=== PATIENT | female | born 1985 | race Caucasian/White ===

== ENCOUNTER 2016-08-26 16:32 | Emergency (ER) | payer SELFPAY ==
[~2016-08-26] VITALS: Ht 165.1 cm; Wt 95.1 kg
[2016-08-26] MEDS ORDERED: SODIUM CHLORIDE 0.9% 1,000 ML IV ONE (16:43)
[2016-08-26] MEDS ORDERED: METOCLOPRAMIDE 5 MG/ML, 2ML IVPush ONE (17:00)
[2016-08-26] MEDS ORDERED: SODIUM CHLORIDE 0.9% 1,000ML IVBOLUS ONE (17:00)
[2016-08-26 17:18] LABS: ASPARTATE AMINO TRANSFERASE 16 U/L (15-37); BLOOD UREA NITROGEN 7 mg/dL (7-18)
[2016-08-26] MEDS ORDERED: DOXY1TAB3 PO (17:26)
[2016-08-26] MEDS ORDERED: METOCLOPRAMIDE 5 MG/ML, 2ML ONE (17:46)
[2016-08-26] MEDS ORDERED: CEFTRIAXONE PMX 1GM/50ML 50 ML ONE (19:05)
[2016-08-26] MEDS ORDERED: CEFTRIAXONE PMX 1GM/50ML 50 ML IV ONE (19:30)
[2016-08-26] MEDS ORDERED: CEFTRIAXONE 1,000 MG in SODIUM CHLORIDE 0.9% 50 ML IV ONE (19:30)
[2016-08-26 20:06] VITALS: BP 116/50
== END 2016-08-26 20:18 | disposition home or self-care (01) ==
LOC: ED 20:00
DX: O23.11 Infections of bladder in pregnancy, first trimester (principal); Z3A.12 12 weeks gestation of pregnancy; O26.891 Other specified pregnancy related conditions, first trimester; R11.2 Nausea with vomiting, unspecified; J45.909 Unspecified asthma, uncomplicated
CPT/HCPCS: 36415; 80053; 81001; 83690; 85025; 87077; 87086; 87186; 96361; 96374; 96375; 99284; J0696; J2765; J7030

== ENCOUNTER 2016-09-14 07:39 | Emergency (ER) | payer OTHER ==
[~2016-09-14] VITALS: Ht 165.1 cm; Wt 95.5 kg
[~2016-09-14 07:39] MED LIST: DOXY1TAB3 PO
[2016-09-14 08:58] LABS: ASPARTATE AMINO TRANSFERASE 8 U/L (15-37); BLOOD UREA NITROGEN 7 mg/dL (7-18)
[2016-09-14 09:47] VITALS: BP 104/59
== END 2016-09-14 09:58 | disposition home or self-care (01) ==
LOC: ED 08:34
DX: O23.42 Unspecified infection of urinary tract in pregnancy, second trimester (principal); Z3A.16 16 weeks gestation of pregnancy
CPT/HCPCS: 36415; 80053; 81001; 83690; 85025; 87086; 99284

== ENCOUNTER 2016-11-07 07:14 | Inpatient (IN) | payer OTHER ==
[~2016-11-07] VITALS: Ht 165.1 cm; Wt 98.3 kg
[2016-11-07] MEDS ORDERED: CEFTRIAXONE PMX 1GM/50ML 50 ML IV SCH (08:30)
[2016-11-07] MEDS: LACTATED RINGERS 1,000 ML IV SCH ×2 (08:30→15:54)
[2016-11-07] MEDS ORDERED: LACTATED RINGERS 1,000 ML IV SCH (08:30)
[2016-11-07 08:36] LABS: HEMATOCRIT 35.1 % (34.6-47.8); HEMOGLOBIN 11.7 g/dL (11.7-16.4)
[2016-11-07] MEDS ORDERED: ONDANSETRON 2MG/ML, 2ML ONE ×3 (08:37→18:47)
[2016-11-07] MEDS ORDERED: MORPHINE SULFATE 4 MG/ML, 1ML ONE ×4 (08:39→14:49)
[2016-11-07] MEDS: ONDANSETRON 2MG/ML, 2ML IVPush PRN ×3 (08:45→18:50)
[2016-11-07] MEDS: MORPHINE SULFATE 4 MG/ML, 1ML IVPush PRN ×4 (08:46→14:53)
[2016-11-07] MEDS ORDERED: OXYcodone/APAP 5/325MG TABLET PO PRN (09:00)
[2016-11-07] MEDS ORDERED: OXYcodone/APAP 5/325MG TABLET ONE (11:53)
[2016-11-07] MEDS ORDERED: MEPERIDINE/PF 100 MG/ML ONE ×2 (16:08→21:04)
[2016-11-07] MEDS: MEPERIDINE/PF 100 MG/ML IM PRN ×2 (16:16→21:07)
[2016-11-07 20:19] LABS: DAU SCREEN DISCLAIMER
[2016-11-07] MEDS: CEFTRIAXONE PMX 1GM/50ML 50 ML IV SCH (21:00)
[2016-11-08] MEDS ORDERED: ONDANSETRON 2MG/ML, 2ML ONE ×2 (02:16→21:59)
[2016-11-08] MEDS ORDERED: MEPERIDINE/PF 100 MG/ML ONE ×2 (02:16→07:45)
[2016-11-08] MEDS: MEPERIDINE/PF 100 MG/ML IM PRN ×2 (02:22→07:53)
[2016-11-08] MEDS: ONDANSETRON 2MG/ML, 2ML IVPush PRN ×2 (02:22→22:02)
[2016-11-08] MEDS: LACTATED RINGERS 1,000 ML IV SCH ×3 (08:36→17:35)
[2016-11-08] MEDS: CEFTRIAXONE PMX 1GM/50ML 50 ML IV SCH ×2 (08:57→21:10)
[2016-11-08] MEDS: PROMETHAZINE 25 MG SUPP PR PRN (08:57)
[2016-11-08 10:13] VITALS: BP 120/65
[2016-11-08] MEDS ORDERED: MORPHINE SULFATE 4 MG/ML, 1ML ONE (11:29)
[2016-11-08] MEDS: MORPHINE SULFATE 4 MG/ML, 1ML IVPush PRN (11:30)
[2016-11-08] MEDS: D5%-LACTATED RINGERS 1,000 ML IV SCH (14:00)
[2016-11-08 23:02] VITALS: BP 131/63
[2016-11-09] MEDS: LACTATED RINGERS 1,000 ML IV SCH ×4 (02:21→21:51)
[2016-11-09] MEDS: D5%-LACTATED RINGERS 1,000 ML IV SCH ×3 (06:00→14:00)
[2016-11-09] MEDS: PROMETHAZINE 25 MG SUPP PR PRN (08:46)
[2016-11-09] MEDS: CEFTRIAXONE PMX 1GM/50ML 50 ML IV SCH ×2 (08:46→20:48)
[2016-11-09 16:40] VITALS: BP 133/72
[2016-11-09 22:26] VITALS: BP 120/66
[2016-11-10] MEDS: LACTATED RINGERS 1,000 ML IV SCH ×3 (02:24→16:23)
[2016-11-10] MEDS ORDERED: METOCLOPRAMIDE 5 MG/ML, 2ML IVPush PRN (08:00)
[2016-11-10] MEDS: MAGNESIUM HYDROXIDE 8%, 30ML UDC PO SCH (08:10)
[2016-11-10] MEDS: FAMOTIDINE 20 MG/2 ML IV SCH ×2 (08:12→20:46)
[2016-11-10] MEDS: MEPERIDINE PCA 300 MG/30 ML IV PRN ×2 (08:35→18:55)
[2016-11-10] MEDS: CEFTRIAXONE PMX 1GM/50ML 50 ML IV SCH ×2 (08:41→20:49)
[2016-11-10] MEDS ORDERED: CALCIUM CARBONATE 500 MG TAB.CHEW PO PRN (12:30)
[2016-11-10] MEDS ORDERED: METOCLOPRAMIDE 5 MG/ML, 2ML ONE ×2 (14:55→20:38)
[2016-11-10] MEDS: METOCLOPRAMIDE 5 MG/ML, 2ML IVPush SCH ×2 (14:56→20:49)
[2016-11-11] MEDS: LACTATED RINGERS 1,000 ML IV SCH ×3 (01:01→17:17)
[2016-11-11] MEDS ORDERED: METOCLOPRAMIDE 5 MG/ML, 2ML ONE ×4 (03:01→20:47)
[2016-11-11] MEDS: METOCLOPRAMIDE 5 MG/ML, 2ML IVPush SCH ×3 (03:04→20:52)
[2016-11-11 09:00] VITALS: BP 162/67
[2016-11-11] MEDS: CEFTRIAXONE PMX 1GM/50ML 50 ML IV SCH ×2 (09:00→09:09)
[2016-11-11] MEDS: MAGNESIUM HYDROXIDE 8%, 30ML UDC PO SCH (09:00)
[2016-11-11] MEDS: FAMOTIDINE 20 MG/2 ML IV SCH (09:10)
[2016-11-11] MEDS ORDERED: MAGNESIUM HYDROXIDE 8%, 30ML UDC ONE (09:15)
[2016-11-11] MEDS ORDERED: MEPERIDINE PCA 300 MG/30 ML IV PRN (12:53)
[2016-11-11] MEDS: MEPERIDINE PCA 300 MG/30 ML IV PRN ×2 (12:59→22:16)
[2016-11-11] MEDS ORDERED: ALBUTEROL SULFATE 2.5 MG/3 ML NPPB PRN (13:30)
[2016-11-11] MEDS ORDERED: PRENATAL VIT/IRON/FA 1 EACH TABLET ONE (15:39)
[2016-11-11] MEDS: PRENATAL VIT/IRON/FA 1 EACH TABLET PO SCH (15:41)
[2016-11-11 20:41] VITALS: BP 148/58
[2016-11-11] MEDS ORDERED: DOCUSATE 100 MG CAPSULE PO SCH (21:00)
[2016-11-11] MEDS ORDERED: DOCUSATE 100 MG CAPSULE ONE (21:01)
[2016-11-11 21:20] LABS: HEMATOCRIT 28.5 % (34.6-47.8); HEMOGLOBIN 9.5 g/dL (11.7-16.4); WHITE BLOOD COUNT 9.3 x10^3/uL (3.4-10)
[2016-11-11 21:32] LABS: ASPARTATE AMINO TRANSFERASE 20 U/L (15-37); BLOOD UREA NITROGEN 10 mg/dL (7-18)
[2016-11-12] MEDS: LACTATED RINGERS 1,000 ML IV SCH ×2 (00:24→08:40)
[2016-11-12] MEDS ORDERED: METOCLOPRAMIDE 5 MG/ML, 2ML ONE ×3 (04:42→14:37)
[2016-11-12] MEDS: METOCLOPRAMIDE 5 MG/ML, 2ML IVPush SCH ×3 (04:45→14:47)
[2016-11-12] MEDS: CEFTRIAXONE PMX 1GM/50ML 50 ML IV SCH (06:52)
[2016-11-12] MEDS ORDERED: DOCUSATE 100 MG CAPSULE ONE (08:46)
[2016-11-12] MEDS ORDERED: PRENATAL VIT/IRON/FA 1 EACH TABLET ONE (08:46)
[2016-11-12] MEDS ORDERED: MAGNESIUM HYDROXIDE 8%, 30ML UDC ONE (08:46)
[2016-11-12] MEDS: FAMOTIDINE 20 MG/2 ML IV SCH (08:48)
[2016-11-12] MEDS: PRENATAL VIT/IRON/FA 1 EACH TABLET PO SCH (08:49)
[2016-11-12 09:00] VITALS: BP 120/67
== END 2016-11-12 17:10 | disposition home or self-care (01) | DRG 781 ==
LOC: LDOP 07:14 → OBSVTOIN 08:08 → LDIP 08:08
PROVIDERS: ADMIT Obstetrics & Gynecology Maternal & Fetal Medicine; ATTEND Obstetrics & Gynecology Maternal & Fetal Medicine
PROC: 0T9B70Z Drainage of Bladder with Drainage Device, Via Natural or Artificial Opening (ICD-10-PCS; principal; 2016-11-11)
DX: O23.02 Infections of kidney in pregnancy, second trimester (principal); O26.832 Pregnancy related renal disease, second trimester; F17.210 Nicotine dependence, cigarettes, uncomplicated; O99.332 Smoking (tobacco) complicating pregnancy, second trimester; N20.0 Calculus of kidney; Z3A.23 23 weeks gestation of pregnancy; Z3A.22 22 weeks gestation of pregnancy
CPT/HCPCS: 36415; 76770; 80053; 80307; 81001; 82360; 85025; 87077; 87086; 87186; 88300; J0696; J2175; J2270; J2405; J2765; J7120; J7121; S0028

== ENCOUNTER 2017-02-12 16:00 | Outpatient (CLI) | payer OTHER ==
[2017-02-12 16:16] VITALS: BP 123/72
== END 2017-02-12 17:10 | disposition home or self-care (01) ==
LOC: LDOP 16:00
PROVIDERS: ATTEND Obstetrics & Gynecology Maternal & Fetal Medicine
DX: O26.893 Other specified pregnancy related conditions, third trimester (principal); O11.3 Pre-existing hypertension with pre-eclampsia, third trimester; O99.513 Diseases of the respiratory system complicating pregnancy, third trimester; J45.909 Unspecified asthma, uncomplicated; O99.333 Smoking (tobacco) complicating pregnancy, third trimester; F17.200 Nicotine dependence, unspecified, uncomplicated; R10.9 Unspecified abdominal pain; Z3A.36 36 weeks gestation of pregnancy
CPT/HCPCS: 59025; 87081; 99211; G0463

== ENCOUNTER 2017-02-18 11:29 | Outpatient (CLI) | payer OTHER ==
[~2017-02-18] VITALS: Ht 165.1 cm; Wt 90.0 kg
[2017-02-18] MEDS ORDERED: PROM25TA10 PO (11:41)
[2017-02-18] MEDS ORDERED: PREN1TAB60 PO (11:41)
[2017-02-18 11:44] VITALS: BP 129/70
[2017-02-18 12:26] LABS: DAU SCREEN DISCLAIMER
== END 2017-02-18 15:23 | disposition home or self-care (01) ==
LOC: LDOP 11:29
PROVIDERS: ATTEND Student in an Organized Health Care Education/Training Program
DX: O26.893 Other specified pregnancy related conditions, third trimester (principal); O62.9 Abnormality of forces of labor, unspecified; O11.3 Pre-existing hypertension with pre-eclampsia, third trimester; O99.333 Smoking (tobacco) complicating pregnancy, third trimester; R10.9 Unspecified abdominal pain; Z3A.37 37 weeks gestation of pregnancy
CPT/HCPCS: 59025; 80307; 81001; 99201; G0463; G0479

== ENCOUNTER 2017-02-21 17:44 | Outpatient (CLI) | payer OTHER ==
[~2017-02-21] VITALS: Ht 165.1 cm; Wt 90.0 kg
[~2017-02-21 17:44] MED LIST changes: +PREN1TAB60 PO; +PROM25TA10 PO
[2017-02-21 17:53] VITALS: BP 128/66
== END 2017-02-21 19:20 | disposition home or self-care (01) ==
LOC: LDOP 17:44
PROVIDERS: ATTEND Student in an Organized Health Care Education/Training Program
DX: O36.8130 Decreased fetal movements, third trimester, not applicable or unspecified (principal); O11.3 Pre-existing hypertension with pre-eclampsia, third trimester; O99.333 Smoking (tobacco) complicating pregnancy, third trimester; F17.200 Nicotine dependence, unspecified, uncomplicated; Z3A.37 37 weeks gestation of pregnancy
CPT/HCPCS: 59025; 99211; G0463

== ENCOUNTER 2017-02-24 12:47 | Inpatient (IN) | payer OTHER ==
[~2017-02-24] VITALS: Ht 165.1 cm; Wt 90.0 kg
[2017-02-24] MEDS ORDERED: OXYTOCIN 30U/ 0.9% NaCL 500ML 500 ML IV ONE (13:01)
[2017-02-24] MEDS ORDERED: LACTATED RINGERS 1,000 ML IV SCH (13:01)
[2017-02-24] MEDS ORDERED: MISOPROSTOL 200 MCG TABLET ONE (13:13)
[2017-02-24] MEDS ORDERED: NEWBORN KIT ONE (13:13)
[2017-02-24] MEDS ORDERED: OXYTOCIN 30U/ 0.9% NaCL 500ML 500 ML ONE (13:13)
[2017-02-24] MEDS ORDERED: LIDOCAINE 1%, 20ML ONE (13:13)
[2017-02-24] MEDS ORDERED: FENTANYL PF 100 MCG/2ML ONE (13:21)
[2017-02-24 13:23] LABS: HEMOGLOBIN 12.3 g/dL (11.7-16.4)
[2017-02-24] MEDS ORDERED: ONDANSETRON 2MG/ML, 2ML IVPush PRN (13:30)
[2017-02-24] MEDS ORDERED: FENTANYL PF 100 MCG/2ML IVPush PRN (13:30)
[2017-02-24] MEDS ORDERED: CALCIUM CARBONATE 500 MG TAB.CHEW PO PRN (13:30)
[2017-02-24 13:44] LABS: DIFF TOTAL CELLS COUNTED 100 CELL DIFF
[2017-02-24 13:46] LABS: ANISOCYTOSIS 1+; GIANT PLATELETS 1+; LARGE PLATELETS 2+; POLYCHROMASIA 1+; VERIFY COUNTS? YES
[2017-02-24] MEDS ORDERED: FENTANYL/BUPIV./NS/PF 250 ML EPIDCONT SCH (13:49)
[2017-02-24] MEDS ORDERED: BUPIVACAINE/PF 0.25% ONE (13:54)
[2017-02-24] MEDS ORDERED: FENTANYL/BUPIV./NS/PF 250 ML EPIDCONT ONE (13:54)
[2017-02-24] MEDS ORDERED: NALOXONE 0.4 MG/ML, 1ML IVPush PRN (14:00)
[2017-02-24] MEDS ORDERED: LACTATED RINGERS 1,000 ML IVBOLUS PRN (14:00)
[2017-02-24] MEDS ORDERED: EPHEDRINE 50 MG/ML, 1ML IVPush PRN (14:00)
[2017-02-24 14:44] LABS: DAU SCREEN DISCLAIMER
[2017-02-24] MEDS ORDERED: CARBOPROST TROMETHAMINE 250 MCG/ML, 1ML IM PRN (18:30)
[2017-02-24] MEDS ORDERED: ONDANSETRON 2MG/ML, 2ML IV PRN (18:30)
[2017-02-24] MEDS ORDERED: BISACODYL 10 MG SUPP PR PRN (18:30)
[2017-02-24] MEDS ORDERED: GLYCERIN ADULT SUPP PR PRN (18:30)
[2017-02-24] MEDS ORDERED: OXYcodone/APAP 5/325MG TABLET PO PRN (18:30)
[2017-02-24] MEDS ORDERED: ACETAMINOPHEN 325 MG TABLET PO PRN (18:30)
[2017-02-24] MEDS ORDERED: MISOPROSTOL 200 MCG TABLET PR PRN (18:30)
[2017-02-24] MEDS ORDERED: DOCUSATE 100 MG CAPSULE PO PRN (18:30)
[2017-02-24] MEDS ORDERED: METOCLOPRAMIDE 5 MG/ML, 2ML IV PRN (18:30)
[2017-02-24] MEDS: OXYcodone/APAP 5/325MG TABLET PO PRN (18:43)
[2017-02-24] MEDS: IBUPROFEN 800 MG TABLET PO PRN (18:44)
[2017-02-24] MEDS: OXYTOCIN 30U/ 0.9% NaCL 500ML 500 ML IV SCH (18:46)
[2017-02-24] MEDS: LACTATED RINGERS 1,000 ML IV SCH ×2 (19:50→21:49)
[2017-02-24 20:20] VITALS: BP 111/64
[2017-02-24 23:45] VITALS: BP 127/74
[2017-02-25 02:42] LABS: WHITE BLOOD COUNT 16.2 x10^3/uL (3.4-10)
[2017-02-25] MEDS: IBUPROFEN 800 MG TABLET PO PRN ×2 (03:27→11:10)
[2017-02-25 03:30] VITALS: BP 121/75
[2017-02-25] MEDS: OXYcodone/APAP 5/325MG TABLET PO PRN ×3 (03:30→12:26)
[2017-02-25] MEDS: OXYTOCIN 30U/ 0.9% NaCL 500ML 500 ML IV SCH (04:22)
[2017-02-25] MEDS: LACTATED RINGERS 1,000 ML IV SCH (05:49)
[2017-02-25 08:00] VITALS: BP 124/76
[2017-02-25] MEDS ORDERED: IBUP-1223 PO (08:49)
[2017-02-25] MEDS ORDERED: OXYC-302 PO (08:49)
[2017-02-25] MEDS ORDERED: PRENATAL VIT/IRON/FA 1 EACH TABLET PO SCH (09:00)
[2017-02-25] MEDS ORDERED: NICOTINE 21 MG/24 HR PATCH.TD24 TD SCH (09:00)
[2017-02-25 15:00] VITALS: BP 119/80
== END 2017-02-25 17:43 | disposition home or self-care (01) | DRG 775 ==
LOC: LDOP 12:47 → LDIP 13:01 → 2NW 20:00
PROVIDERS: ADMIT Student in an Organized Health Care Education/Training Program; ATTEND Student in an Organized Health Care Education/Training Program
PROC: 10907ZC Drainage of Amniotic Fluid, Therapeutic from Products of Conception, Via Natural or Artificial Opening (ICD-10-PCS; principal; 2017-02-24)
PROC: 10E0XZZ Delivery of Products of Conception, External Approach (ICD-10-PCS; 2017-02-24)
PROC: 3E0R3BZ Introduction of Anesthetic Agent into Spinal Canal, Percutaneous Approach (ICD-10-PCS; 2017-02-24)
PROC: 00HU33Z Insertion of Infusion Device into Spinal Canal, Percutaneous Approach (ICD-10-PCS; 2017-02-24)
DX: O77.0 Labor and delivery complicated by meconium in amniotic fluid (principal); O99.324 Drug use complicating childbirth; E78.00 Pure hypercholesterolemia, unspecified; F12.90 Cannabis use, unspecified, uncomplicated; J45.909 Unspecified asthma, uncomplicated; O16.4 Unspecified maternal hypertension, complicating childbirth; O99.284 Endocrine, nutritional and metabolic diseases complicating childbirth; O99.52 Diseases of the respiratory system complicating childbirth; Z37.0 Single live birth; Z3A.39 39 weeks gestation of pregnancy; Z72.0 Tobacco use; Z91.19 Patient's noncompliance with other medical treatment and regimen; O70.0 First degree perineal laceration during delivery
CPT/HCPCS: 36415; 80307; 85025; 86850; 86900; J3010; G0479; J2590; J7120